=== PATIENT | female | born 1975 | race Hispanic/Latino ===

== ENCOUNTER 2023-07-09 23:59 | Emergency (ER) | payer BC, SELFPAY ==
[2023-07-09 23:59] VITALS: BP 167/86; PULSE 93; RESP 18; TEMP 36.1; O2SAT 97; BMI 36.3
--- NOTE | 2023-07-10 00:30 | RAD_ITS ---
INDICATION: injury EXAMINATION/TECHNIQUE: X-RAY - RIGHT XR Elbow Min 3 Views COMPARISON: None. FINDINGS: 3 views of the right elbow were obtained. No definite fat pad elevation. No acute fracture is identified. No dislocation. RAD/Elbow min 3 Views IMPRESSION: No acute fracture identified. Electronically Signed: Moo Fortune MD at 1:37 EDT ,
--- NOTE | 2023-07-10 00:30 | RAD_ITS ---
INDICATION: injury EXAMINATION/TECHNIQUE: X-RAY - LEFT XR Knee Complete 4 Views COMPARISON: None. FINDINGS: 4 views of the left knee were obtained. No acute fracture is identified. No significant degenerative change. No joint effusion. RAD/Knee 4 or More Views IMPRESSION: No acute fracture identified. Electronically Signed: Moo Fortune MD at 1:43 EDT ,
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
--- NOTE | 2023-07-10 00:30 | RAD_ITS ---
INDICATION: injury EXAMINATION/TECHNIQUE: X-RAY - RIGHT XR Shoulder Min 2 Views COMPARISON: None. FINDINGS: 4 views of the right shoulder were obtained. No acute fracture is identified. No dislocation. RAD/Shoulder min 2 Views IMPRESSION: No acute fracture or dislocation. Electronically Signed: Moo Fortune MD at 1:39 EDT ,
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
[2023-07-10] MEDS: Naproxen 250 MG Tablet 500 MG PO (00:35)
== END 2023-07-10 02:10 | disposition home or self-care (01) ==
PROVIDERS: Emergency Provider Emergency Medicine; Visit Provider Emergency Medicine
DX: S09.90XA Unspecified injury of head, initial encounter (principal); V43.62XA Car passenger injured in collision with other type car in traffic accident, initial encounter; S46.911A Strain of unspecified muscle, fascia and tendon at shoulder and upper arm level, right arm, initial encounter; S50.12XA Contusion of left forearm, initial encounter; S80.02XA Contusion of left knee, initial encounter; S50.01XA Contusion of right elbow, initial encounter; E66.9 Obesity, unspecified
CPT/HCPCS: 70450; 73030; 73080; 73564; 99282